=== PATIENT | female | born 1950 | race Caucasian/White ===

== ENCOUNTER 2018-11-17 17:04 | Emergency (ER) | payer MEDICARE, OTHER ==
[2018-11-17 17:45] LABS: SEGMENTED NEUTROPHILS % 39 % (39-79)
[2018-11-17] MEDS ORDERED: NOREPINEPHRINE BITARTRATE IV ONE (17:45)
[2018-11-17] MEDS ORDERED: AMIODARONE HCL 150 MG/3ML VIAL ONE ×4 (17:46→19:31)
[2018-11-17] MEDS ORDERED: 0.9 % SODIUM CHLORIDE 250 ML IV ONE (17:46)
[2018-11-17 17:49] LABS: eGFR (Non-African) > 60
--- NOTE | 2018-11-17 18:02 | Diagnostic Imaging Report ---
MELANI VENTURA [facility] [address] [facility] [address] [place] [address]. [id number] Report Submission Date: Nov 17, 2018 5:56:12 PM CDT Patient Study Name: ISELA GRAJEDA Date: Nov 17, 2018 4:37:03 PM CDT Modality Type: DX Gender: F Description: CHEST 1VIEW : 52 Institution: [facility] Physician: MELANI VENTURA Chest, AP portable History: Cardiac arrest Findings: Endotracheal tube ends at the clavicles. Nasogastric tube ends in the stomach. Left subclavian dual lead transvenous pacemaker is present. Defibrillator electrodes superimposed the chest. The heart is enlarged. Pulmonary vascularity is normal. There is no infiltrate, effusion or pneumothorax. There is calcification in the thoracic aorta. Impression: Cardiomegaly. No active pulmonary disease. Electronically signed on Nov 17, 2018 5:56:12 PM CDT by: Gael REYES
[2018-11-17] MEDS ORDERED: 0.9 % SODIUM CHLORIDE 1,000 ML IV ONE (18:34)
[2018-11-17] MEDS ORDERED: EPINEPHrine 0.1 MG/ML DISP.SYRIN IVP ONE (18:34)
[2018-11-17] MEDS ORDERED: DEXTROSE 5 % IN WATER 500 ML IV ONE (18:34)
[2018-11-17] MEDS ORDERED: 0.9 % SODIUM CHLORIDE 100 ML IV ONE (19:29)
[2018-11-17] MEDS ORDERED: DEXTROSE 5 % IN WATER 0 ML IV ONE (19:31)
--- NOTE | 2018-11-17 22:26 | ED Physician Documentation ---
Cardiopulmonary Resuscitation - HISTORIAN Historian: paramedics - HPI Chief Complaint: CPR Additional Information: Patient is a 68-year-old female that presents to the ER via [facility] s/p Cardiac Arrest. According to EMS they were toned out at 16:31 for an unresponsive patient- this was a witnessed arrest by - 1st responders started CPR- EMS arrived and ACLS guidelines were implemented. According to [facility] EMT-P they gave 3 rounds of Epi, delivered 4 shocks, and 300mg of Amiodorone and had did obtain a pulse- however they lost a pulse on arrive- patient was intubated DENTAL TECHNOLOGIST, autopulse active and delivering chest compressions- SEE CODE SHEET FOR LIST OF EVENTS UPON ARRIVAL TO ER Witnessed Arrest?: Yes CPR Initiated Prior to MD Arrival?: Yes - INITIAL FINDING Mentation: unresponsive Respirations: agonal respiration Pulse: absent Rhythm: PEA-tachy - TREATMENT INITIATED DENTAL TECHNOLOGIST Oxygen: intubated CRP/Thumper: Yes Defibrillated X: 4 IV Access: Yes IV Fluids: Yes - MEDICATIONS GIVEN DENTAL TECHNOLOGIST How Many Doses of Epinephrine?: 4 Vasopressin Given?: No Amiodorone Given?: Yes Sodium Bicarb Given?: No Lidocaine Given?: No - ROS CONST: recent illness (bilateral hip replacement) EYES/ENT: none CVS/RESP: none GI/: denies: nausea, vomiting - PAST HX Past History: A-Fib Allergies/Adverse Reactions: Allergies Allergy/AdvReac Type Severity Reaction Status Date / Time No Known Drug Allergies Allergy Unverified 07/16/14 08:26 - SOCIAL HX Smoking History: non-smoker Alcohol Use: none Drug Use: none - FAMILY HX Family History: No Progress - Progress Progress: 17:32 patient maintaining a pulse and blood pressure- contacted [facility]- they will discuss with Dr. Rashid and will call back. 17:42 Dr. Rashid accepted 17:52 Patient transported to [facility] (ETT placement confirmed- IV drips intact with 2 liters of IVF, Amiodorone drip, Levophed drip)- patient has pulse and blood pressure (stable) ED Results Lab/Radiology - Lab Results Lab Results: Lab Results 11/17/18 11/17/18 11/17/18 17:15 17:15 17:15 WBC 8.20 K/ul K/ul (4.00-12.00) RBC 3.31 M/ul L M/ul (3.90-5.20) Hgb 10.5 g/dL L g/dL (11.5-16.0) Hct 30.9 % L % (34.5-46.5) MCV 93.0 fl fl (80.0-100.0) MCH 31.7 pg pg (28.0-34.0) MCHC 34.0 g/dL g/dL (30.0-36.0) RDW 13.3 % % (11.3-14.3) Plt Count 191 K/mm3 K/mm3 (130-400) Seg Neutrophils % 39 % % (39-79) Band Neutrophils % 1 % % (0-12) Lymphocytes % 51 % H % (16-50) Monocytes % 9 % % (0-11) Nucleated RBCs 2 % H % (0-0) [place] Cells 1+ H (NEGATIVE) D-Dimer > 5000 ng/mL H ng/mL (6.0-682) Sodium 130 mmol/L L mmol/L (137-145) Potassium 3.9 mmol/L mmol/L (3.5-5.1) Chloride 98 mmol/L mmol/L (98-107) Carbon Dioxide 18 mmol/L L mmol/L (22-30) Anion Gap 17.9 mmol/L H mmol/L (3-11) BUN 8 mg/dL mg/dL (7-17) Creatinine 0.57 mg/dL mg/dL (0.52-1.04) Est GFR ( Amer) > 60 (60 - ) Est GFR (Non-Af Amer) > 60 (60 - ) Glucose 216 mg/dL H mg/dL (74-106) Calcium 8.2 mg/dL L mg/dL (8.4-10.2) Total Bilirubin 1.0 mg/dL mg/dL (0.2-1.3) AST 113 U/L H U/L (15-46) ALT 31 U/L U/L (13-69) Alkaline Phosphatase 119 U/L U/L (38-126) Creatine Kinase 66 U/L U/L (30-135) CK-MB (CK-2) 1.1 ng/mL ng/mL (0.0-5.6) Troponin I 0.020 ng/mL ng/mL (0.012-0.034) NT-Pro-B Natriuret Pep 4220.6 pg/mL H pg/mL (11.1-125.0) Total Protein 5.4 g/dL L g/dL (6.3-8.2) Albumin 3.1 g/dL L g/dL (3.5-5.0) - Radiology Radiology Impressions: Chest, AP portable History: Cardiac arrest Findings: Endotracheal tube ends at the clavicles. Nasogastric tube ends in the stomach. Left subclavian dual lead transvenous pacemaker is present. Defibrillator electrodes superimposed the chest. The heart is enlarged. Pulmon di vascularity is normal. There is no infiltrate, effusion or pneumothorax. There is calcification in the thoracic aorta. Impression: Cardiomegaly. No active pulmonary disease. - Orders Orders: ED Orders Category Date Time Status Continuous EKG monitoring Q30M Care 11/17/18 17:33 Active Continuous Pulse Oximetry Q30M Care 11/17/18 17:[address] IV Lock 1T Care 11/17/18 17:33 Active CHEST 1VIEW [RAD] Stat Exams 11/17/18 Completed CBC/PLATELET/DIFF Routine Lab 11/17/18 17:15 Completed CKMB Stat Lab 11/17/18 17:15 Completed CMP Routine Lab 11/17/18 17:15 Completed CREATINE KINASE Routine Lab 11/17/18 17:15 Completed D DIMER Stat Lab 11/17/18 17:15 Completed NTBNP Stat Lab 11/17/18 17:15 Completed TROPONIN I Stat Lab 11/17/18 17:15 Completed 0.9 % Sodium Chloride [Normal Saline] 1,000 ml Med 11/17/18 18:34 Discontinued IV .STK-MED 0.9 % Sodium Chloride [Normal Saline] 100 ml Med 11/17/18 19:29 Discontinued IV .STK-MED 0.9 % Sodium Chloride [Normal Saline] 250 ml Med 11/17/18 17:46 Discontinued IV .STK-MED Amiodarone HCl [Cordarone] Med 11/17/18 17:46 Discontinued 150 mg .ROUTE .STK-MED ONE Amiodarone HCl [Cordarone] Med 11/17/18 18:36 Discontinued 150 mg .ROUTE .STK-MED ONE Amiodarone HCl [Cordarone] Med 11/17/18 19:31 Discontinued 150 mg .ROUTE .STK-MED ONE Amiodarone HCl [Cordarone] Med 11/17/18 18:34 Discontinued 600 mg .ROUTE .STK-MED ONE DOPamine HCL IN DEXTROSE 5 % [Dobutrex] Med 11/17/18 18:35 Discontinued 400 mg in 250 ml IV .STK-MED Dextrose 5 % in Water [D5w] 100 ml Med 11/17/18 19:31 Discontinued IV .STK-MED Dextrose 5 % in Water [D5w] 500 ml Med 11/17/18 18:34 Discontinued IV .STK-MED EPINEPHrine [Adrenalin] Med 11/17/18 18:34 Discontinued 0.4 mg IVP .STK-MED ONE Norepinephrine Bitartrate [Levophed] Med 11/17/18 17:45 Discontinued 4 mg IV .STK-MED ONE Oxygen Daily Oxygen 11/17/18 17:45 Ordered EKG WITH COMPARISON Stat Ther 11/17/18 17:33 Ordered Chest Pain Physical Exam - EXAM General Appearance: other (unresponsive) EENT: MIGUEL Respiratory: other (intubated- positive breath sounds- tube placement confirmed) CVS: other (PEA) Abdomen: distended (will get NG placed) Skin: pallor Neuro: other (unresponsive) Discharge Clincal Impression: Signs of return of spontaneous circulation, Personal history of sudden cardiac arrest Clincal Impression: (Ruled Out): Postoperative cardiac arrest Referrals: Primary Doctor,No [Primary Care Provider] - 2 Days Condition: Critical Disposition: 02 XFER SHT-TRM HOSP Decision to Admit: NO Decision Time: 22:36
== END 2018-11-17 17:52 | disposition short-term general hospital (02) ==
LOC: ED 17:04
DX: I46.9 Cardiac arrest, cause unspecified (principal)
CPT/HCPCS: 71045; 80053; 82550; 82553; 83880; 84484; 85025; 85379; 99285; S1016